=== PATIENT | female | born 1995 | race African-American/Black ===

== ENCOUNTER 2020-05-20 22:45 | Emergency (ER) | payer SELFPAY ==
[~2020-05-20] VITALS: Ht 165.1 cm; Wt 62.0 kg
[2020-05-20 22:59] VITALS: BP 121/88
[2020-05-20] MEDS ORDERED: IBUPROFEN 600MG TABLET PO ONE (23:30)
[2020-05-20] MEDS ORDERED: TETANUS, DIPHTHERIA, PERTUSSIS VAC/PF 0.5ML (>7YR OLD) IM ONE (23:30)
[2020-05-20] MEDS ORDERED: CEPHALEXIN 250MG CAPSULE PO ONE (23:30)
== END 2020-05-21 00:17 | disposition home or self-care (01) ==
LOC: ER 22:45
DX: L03.115 Cellulitis of right lower limb (principal); Z23 Encounter for immunization
CPT/HCPCS: 90471; 90715; 99283

== ENCOUNTER 2020-08-16 07:42 | Emergency (ER) | payer OTHER ==
[~2020-08-16] VITALS: Ht 165.1 cm; Wt 64.0 kg
[2020-08-16] MEDS ORDERED: DIPHENHYDRAMINE 50MG/ML VIAL IM STA (08:23)
[2020-08-16] MEDS ORDERED: LORAZEPAM 2MG/ML CPJ IM STA (08:23)
[2020-08-16] MEDS ORDERED: SODIUM CHLORIDE 0.9% 1,000 ML IV ONE (10:15)
[2020-08-16 10:38] LABS: BASOPHILS % 1.2 % (0.0-2.0); EOSINOPHILS % 0.9 % (0.0-5.0); HEMATOCRIT. 36.7 % (36.0-48.0); HEMOGLOBIN. 11.8 g/dL (12.0-16.0); LYMPHOCYTES % 38.2 % (20.0-50.0); MEAN CORPUSCULAR HEMOGLOBIN 25.9 pg (28.0-32.0); MEAN CORPUSCULAR VOLUME 80.7 fL (81.0-99.0); MEAN PLATELET VOLUME 9.6 fl (7.4-10.4); MONOCYTES % 7.6 % (2.0-8.0); NEUTROPHILS % 52.1 % (40.0-76.0); PLATELET 350 x1000/uL (130-400); RED BLOOD CELL COUNT 4.55 mill/uL (4.2-5.4); RED CELL DISTRIBUTION WIDTH 15.8 % (11.6-14.6)
[2020-08-16 10:45] LABS: CHLORIDE 111 mEq/L (98-107)
[2020-08-16 10:49] LABS: ETHANOL BLOOD 263 mg/dL
[2020-08-16 11:06] LABS: HCG SCREEN NEGATIVE
[2020-08-16 19:24] LABS: CLARITY URINE CLOUDY (CLEAR); COLOR URINE YELLOW (YELLOW); KETONES URINE NEGATIVE (NEGATIVE); LEUKOCYTE ESTERASE URINE 2+ (NEGATIVE); NITRITE URINE POSITIVE (NEGATIVE); OCCULT BLOOD URINE NEGATIVE (NEGATIVE); PROTEIN URINE NEGATIVE (NEGATIVE); SPECIFIC GRAVITY URINE 1.016 (1.005-1.030); UROBILINOGEN URINE 0.2 E.U./dL (0.2-1.0)
[2020-08-16 19:41] LABS: *AMPHETAMINES SCREEN URINE NEGATIVE (NEGATIVE); *BARBITURATES SCREEN URINE NEGATIVE (NEGATIVE); *BENZODIAZEPINES SCREEN URINE NEGATIVE (NEGATIVE); *COCAINE SCREEN URINE NEGATIVE (NEGATIVE); METHADONE URINE SCREEN NEGATIVE (NEGATIVE); OPIATES URINE SCREEN NEGATIVE (NEGATIVE)
[2020-08-16 19:42] LABS: CANNABINOID URINE SCREEN NEGATIVE (NEGATIVE); PHENCYCLIDINE URINE SCREEN NEGATIVE (NEGATIVE)
[2020-08-17] MEDS ORDERED: CEPHALEXIN 250MG CAPSULE PO NR (00:45)
[2020-08-17] MEDS ORDERED: IBUPROFEN 600MG TABLET PO ONE (02:00)
[2020-08-17] MEDS: CEPHALEXIN 250MG CAPSULE PO SCH ×2 (08:41→13:06)
[2020-08-17 13:08] VITALS: BP 112/88
== END 2020-08-17 13:10 | disposition home or self-care (01) ==
LOC: ER 07:42
DX: T51.0X1A Toxic effect of ethanol, accidental (unintentional), initial encounter (principal); S51.812A Laceration without foreign body of left forearm, initial encounter; X78.9XXA Intentional self-harm by unspecified sharp object, initial encounter; F16.10 Hallucinogen abuse, uncomplicated; R45.1 Restlessness and agitation; N30.00 Acute cystitis without hematuria; F10.229 Alcohol dependence with intoxication, unspecified; Y90.8 Blood alcohol level of 240 mg/100 ml or more; Y93.89 Activity, other specified; F33.3 Major depressive disorder, recurrent, severe with psychotic symptoms; Y92.89 Other specified places as the place of occurrence of the external cause
CPT/HCPCS: 36415; 80053; 80305; 80320; 81003; 84703; 85025; 96360; 96372; 99285; J1200; J2060; J7030; G0480

== ENCOUNTER 2023-03-24 00:17 | Emergency (ER) | payer MEDICAID, OTHER ==
[~2023-03-24] VITALS: Ht 167.6 cm; Wt 62.0 kg
[2023-03-24 00:24] VITALS: BP 124/91; PULSE 110; RESP 20; TEMP 98.2; O2SAT 95
[2023-03-24] MEDS ORDERED: CHLORDIAZEPOXIDE 25MG CAPSULE PO ONE (01:00)
[2023-03-24 01:21] LABS: BASOPHILS % 1.1 % (0.0-2.0); EOSINOPHILS % 0.4 % (0.0-5.0); HEMATOCRIT. 36.4 % (36.0-48.0); HEMOGLOBIN. 11.8 g/dL (12.0-16.0); LYMPHOCYTES % 43.5 % (20.0-50.0); MEAN CORPUSCULAR HEMOGLOBIN 26.2 pg (28.0-32.0); MEAN CORPUSCULAR VOLUME 81.1 fL (81.0-99.0); MONOCYTES % 7.5 % (2.0-8.0); NEUTROPHILS % 47.5 % (40.0-76.0); PLATELET 413 x1000/uL (130-400); RED BLOOD CELL COUNT 4.49 mill/uL (4.2-5.4); RED CELL DISTRIBUTION WIDTH 17.7 % (11.6-14.6)
[2023-03-24 01:28] LABS: CHLORIDE 107 mEq/L (98-107)
[2023-03-24 01:30] LABS: HCG SCREEN NEGATIVE
[2023-03-24 02:16] LABS: ETHANOL BLOOD 420 mg/dL (-10)
== END 2023-03-24 05:50 | disposition home or self-care (01) ==
LOC: ER 00:17
DX: T51.0X1A Toxic effect of ethanol, accidental (unintentional), initial encounter (principal); Y92.9 Unspecified place or not applicable
CPT/HCPCS: 36415; 80053; 80307; 80320; 80329; 84703; 85025; 99283; G0480

== ENCOUNTER 2024-08-31 00:45 | Emergency (ER) | payer MEDICAID, OTHER ==
[~2024-08-31] VITALS: Ht 167.6 cm; Wt 64.0 kg
[2024-08-31 00:50] VITALS: BP 111/69; PULSE 84; RESP 16; O2SAT 100
[2024-08-31 01:33] LABS: BASOPHILS % 0.8 % (0.0-2.0); DIFFERENTIAL COMMENT 0; EOSINOPHILS % 5.6 % (0.0-5.0); HEMATOCRIT. 33.3 % (36.0-48.0); HEMOGLOBIN. 10.6 g/dL (12.0-16.0); LYMPHOCYTES % 30.9 % (20.0-50.0); MEAN CORPUSCULAR HEMOGLOBIN 25.1 pg (28.0-32.0); MEAN CORPUSCULAR HGB CONC 31.9 g/dL (31.0-37.0); MEAN CORPUSCULAR VOLUME 78.7 fL (81.0-99.0); MEAN PLATELET VOLUME 8.3 fl (7.4-10.4); MONOCYTES % 8.8 % (2.0-8.0); NEUTROPHILS % 53.9 % (40.0-76.0); PLATELET 293 x1000/uL (130-400); RED BLOOD CELL COUNT 4.23 mill/uL (4.2-5.4); RED CELL DISTRIBUTION WIDTH 18.1 % (11.6-14.6); WHITE BLOOD COUNT 8.1 x1000/uL (4.5-11.0)
[2024-08-31 02:01] LABS: CHLORIDE 106 mEq/L (98-107); POTASSIUM 4.1 mEq/L (3.5-5.1); SODIUM 139 mEq/L (136-145)
[2024-08-31 02:02] LABS: CALCIUM 9.8 mg/dL (8.7-10.4); CARBON DIOXIDE 27 mEq/L (21-32); HCG SCREEN NEGATIVE
[2024-08-31 02:07] LABS: CREATININE 0.6 mg/dL (0.6-1.0); GLUCOSE 89 mg/dL (70-105); UREA NITROGEN BLOOD 11 mg/dL (9-23)
[2024-08-31 02:09] LABS: ALANINE AMINOTRANSFERASE < 7 IU/L (10-49); ALBUMIN 4.2 g/dL (3.2-4.8); ASPARTATE AMINOTRANSFERASE 14 IU/L (<34); BILIRUBIN TOTAL 0.2 mg/dL (0.1-1.0); PROTEIN TOTAL 7.4 g/dL (6.0-8.3)
[2024-08-31 02:14] LABS: BILIRUBIN DIRECT < 0.1 mg/dL (<=3.0); ETHANOL BLOOD < 10 mg/dL (<10); TROPONIN I HIGH SENSITIVITY < 4 ng/L (3.0-34)
[2024-08-31] MEDS ORDERED: ACET-2708 MT (04:07)
[2024-08-31] MEDS: ACETAMINOPHEN 325MG TABLET PO ONE (04:31)
[2024-08-31 04:33] VITALS: TEMP 99.1
[2024-08-31] MEDS: ACETAMINOPHEN 325MG TABLET PO NR (04:33)
== END 2024-08-31 04:42 | disposition home or self-care (01) ==
LOC: ER 00:45
DX: R07.89 Other chest pain (principal); F17.200 Nicotine dependence, unspecified, uncomplicated; F15.10 Other stimulant abuse, uncomplicated; Z00.00 Encounter for general adult medical examination without abnormal findings
CPT/HCPCS: 36415; 71045; 80048; 80076; 80320; 84484; 84703; 85025; 99284; G0480